=== PATIENT | male | born 1965 | race Caucasian/White ===

== ENCOUNTER 2020-11-05 14:52 | Emergency (ER) | payer OTHER ==
[2020-11-05] MEDS ORDERED: BENADRYL25 MG PO (16:06)
[2020-11-05] MEDS ORDERED: PEPCID AC20 MG PO (16:06)
== END 2020-11-05 16:40 | disposition home or self-care (01) ==
LOC: FER 14:52
DX: S80.262A Insect bite (nonvenomous), left knee, initial encounter (principal); E78.5 Hyperlipidemia, unspecified; F17.210 Nicotine dependence, cigarettes, uncomplicated; Z79.899 Other long term (current) drug therapy; Z79.82 Long term (current) use of aspirin; W57.XXXA Bitten or stung by nonvenomous insect and other nonvenomous arthropods, initial encounter
CPT/HCPCS: 99282